=== PATIENT | female | born 1950 | race Caucasian/White ===

== ENCOUNTER 2023-10-06 09:09 | Emergency (ER) | payer MEDICARE, BC ==
[2023-10-06] MEDS ORDERED: Promethazine 25 MG/ML SDV IM ONE (09:44)
[2023-10-06 10:21] LABS: BASOPHILS ABSOLUTE AUTO 0.1 K/mm3 (0.0-0.2); BASOPHILS PERCENT AUTO 0.9 % (0.0-1.0); EOSINOPHILS ABSOLUTE AUTO 0.1 K/mm3 (0.0-0.4); EOSINOPHILS PERCENT AUTO 0.7 % (0.0-6.0); HEMATOCRIT 39.1 % (37.0-47.0); HEMOGLOBIN 12.6 gm/dl (12.0-16.0); IMMATURE GRAN ABSOLUTE AUTO 0.02 K/mm3 (0.00-0.05); IMMATURE GRAN PERCENT AUTO 0.3 % (0.0-0.4); LYMPHOCYTES ABSOLUTE AUTO 1.1 K/mm3 (1.0-4.8); LYMPHOCYTES PERCENT AUTO 15.5 % (24.0-44.0); MEAN CORPUSCULAR HGB CONC 32.2 g/dl (32.0-36.0); MEAN CORPUSCULAR VOLUME 96.3 fl (83.0-99.0); MEAN PLATELET VOLUME 10.5 fl (9.4-12.3); MONOCYTES ABSOLUTE AUTO 0.4 K/mm3 (0.0-0.8); MONOCYTES PERCENT AUTO 5.6 % (0.0-8.0); NEUTROPHILS ABSOLUTE AUTO 5.4 K/mm3 (1.8-7.7); PLATELET COUNT,PLT 264 K/mm3 (150-400); RED BLOOD CELL COUNT 4.06 M/mm3 (4.10-5.30); WHITE BLOOD CELL COUNT,WBC 6.98 K/mm3 (3.9-11.3)
[2023-10-06 13:30] LABS: ALBUMIN 3.7 g/dl (3.4-5.0); ANION GAP 15.9 (5-15); BILIRUBIN TOTAL 0.6 mg/dL (0.2-1.0); BUN/CREATININE RATIO 18.3 (14-18); CALCIUM 9.5 mg/dL (8.5-10.1); CREATININE 1.2 mg/dL (0.55-1.02); EST CRCL DRUG DOSING (CG) 37.01 mL/min; MAGNESIUM 1.6 mg/dL (1.8-2.4); POTASSIUM,K 4.9 mEq/L (3.5-5.1); PROTEIN TOTAL,TP 7.6 g/dl (6.4-8.2)
[2023-10-06 13:53] LABS: APPEARANCE,URINE CLOUDY (Clear); BILIRUBIN,URINE NEGATIVE (Negative); COLOR,URINE YELLOW (Yellow); GLUCOSE,URINE NEGATIVE (Negative); KETONES,URINE NEGATIVE (Negative); LEUKOCYTE ESTERASE,URINE 1+ (Negative); NITRITE,URINE NEGATIVE (Negative); OCCULT BLOOD,URINE TRACE-INTACT (Negative); PROTEIN,URINE 2+ (Negative); UROBILINOGEN,URINE 0.2 (0.2-1.0)
[2023-10-06 14:05] LABS: BACTERIA,URINE MANY /hpf (FEW); MUCUS,URINE FEW /hpf (FEW); WBC,URINE 50-75 /hpf (0-5)
== END 2023-10-06 17:31 | disposition home or self-care (01) ==
LOC: JD.ED 09:09
DX: R42 Dizziness and giddiness (principal); E11.9 Type 2 diabetes mellitus without complications; Z86.73 Personal history of transient ischemic attack (TIA), and cerebral infarction without residual deficits; Z79.899 Other long term (current) drug therapy
CPT/HCPCS: 36415; 72170; 73552; 80053; 81001; 83735; 85025; 96372; 99284; J2550

== ENCOUNTER 2023-11-29 15:04 | Inpatient (IN) | payer MEDICARE, MEDICAID ==
[2023-11-29 16:06] LABS: BASOPHILS ABSOLUTE AUTO 0.1 K/mm3 (0.0-0.2); BASOPHILS PERCENT AUTO 0.4 % (0.0-1.0); EOSINOPHILS ABSOLUTE AUTO 0.1 K/mm3 (0.0-0.4); EOSINOPHILS PERCENT AUTO 0.8 % (0.0-6.0); HEMATOCRIT 40.1 % (37.0-47.0); HEMOGLOBIN 12.9 gm/dl (12.0-16.0); IMMATURE GRAN ABSOLUTE AUTO 0.06 K/mm3 (0.00-0.05); IMMATURE GRAN PERCENT AUTO 0.5 % (0.0-0.4); LYMPHOCYTES ABSOLUTE AUTO 1.4 K/mm3 (1.0-4.8); LYMPHOCYTES PERCENT AUTO 11.9 % (24.0-44.0); MEAN CORPUSCULAR HEMOGLOBIN 31.1 pg (28.0-32.0); MEAN CORPUSCULAR HGB CONC 32.2 g/dl (32.0-36.0); MEAN CORPUSCULAR VOLUME 96.6 fl (83.0-99.0); MEAN PLATELET VOLUME 10.8 fl (9.4-12.3); MONOCYTES PERCENT AUTO 8.5 % (0.0-8.0); NEUTROPHILS ABSOLUTE AUTO 9.3 K/mm3 (1.8-7.7); NEUTROPHILS PERCENT AUTO 77.9 % (41.0-71.0); PLATELET COUNT,PLT 297 K/mm3 (150-400); RED BLOOD CELL COUNT 4.15 M/mm3 (4.10-5.30); WHITE BLOOD CELL COUNT,WBC 11.98 K/mm3 (3.9-11.3)
[2023-11-29] MEDS: Sodium Chloride 0.9% 10 ML Syringe FLUSH PRN (16:10)
[2023-11-29] MEDS: Doxycycline 100 MG in Sodium Chloride 0.9% 100 ML IV ONE (16:10)
[2023-11-29 16:35] LABS: HEMOGLOBIN A1C 5.6 %
[2023-11-29 16:44] LABS: A/G RATIO 0.7 (1-2); ALBUMIN 3.5 g/dl (3.4-5.0); BILIRUBIN TOTAL 0.7 mg/dL (0.2-1.0); C-REACTIVE PROTEIN 6.1 mg/dL (<1.0); CALCIUM 9.7 mg/dL (8.5-10.1); CREATININE 2.6 mg/dL (0.55-1.02); EST CRCL DRUG DOSING (CG) 19.15 mL/min; MAGNESIUM 2.1 mg/dL (1.8-2.4); PROTEIN TOTAL,TP 8.5 g/dl (6.4-8.2)
[2023-11-29] MEDS: Silver Sulfadiazine 1% Crm 400 GM Jar TOP ONE (17:04)
[2023-11-29] MEDS: Furosemide 40 MG/4 ML VIAL IVPUSH ONE (18:25)
[2023-11-29] MEDS: Metoprolol Tartrate 25 MG Tab PO SCH (19:44)
[2023-11-29] MEDS: Sodium Chloride 0.9% 1,000 ML IV SCH (19:55)
[2023-11-29] MEDS ORDERED: Promethazine 25 MG Tab PO PRN (20:00)
[2023-11-29] MEDS ORDERED: Acetaminophen/HYDROcodone 325-5 MG Tab PO PRN (20:04)
[2023-11-29] MEDS ORDERED: Acetaminophen 325 MG Tab PO PRN (20:04)
[2023-11-29] MEDS ORDERED: Morphine 2 MG/ML SYRINGE IVPUSH PRN (20:04)
[2023-11-29] MEDS ORDERED: Nystatin Crm 30 GM Tube TOP SCH (21:00)
[2023-11-29] MEDS ORDERED: Doxycycline 100 MG in Sodium Chloride 0.9% 100 ML IV SCH (21:00)
[2023-11-29] MEDS ORDERED: Doxycycline Monohydrate 100 MG Cap PO SCH (21:00)
[2023-11-29] MEDS ORDERED: Metoprolol Tartrate 25 MG Tab PO SCH (21:00)
[2023-11-29] MEDS: Heparin Sodium 5,000 Units/ML Vial SUBCUT SCH (23:13)
[2023-11-29 23:14] LABS: APPEARANCE,URINE TURBID (Clear); BILIRUBIN,URINE 3+ (Negative); COLOR,URINE RED (Yellow); GLUCOSE,URINE NEGATIVE (Negative); KETONES,URINE 1+ (Negative); LEUKOCYTE ESTERASE,URINE 3+ (Negative); NITRITE,URINE POSITIVE (Negative); OCCULT BLOOD,URINE 3+ (Negative); PH,URINE 5.5 (5.0-8.0); PROTEIN,URINE 3+ (Negative)
[2023-11-29 23:36] LABS: RBC,URINE 50-75 /hpf (0-5); WBC,URINE 0-5 /hpf (0-5)
[2023-11-29 23:37] LABS: AMORPHOUS SEDIMENT,URINE FEW /hpf (NOT SEEN); BACTERIA,URINE MANY /hpf (FEW); EPITHELIAL CELLS,URINE 0-5 /hpf (0-5); MUCUS,URINE NOT SEEN /hpf (FEW)
[2023-11-29] MEDS: Enoxaparin 40 MG/0.4 ML Syringe SUBCUT SCH (23:53)
[2023-11-30] MEDS: Doxycycline 100 MG in Sodium Chloride 0.9% 100 ML IV SCH (04:32)
[2023-11-30] MEDS ORDERED: Furosemide 40 MG Tab PO SCH (06:00)
[2023-11-30] MEDS ORDERED: amLODIPine 5 MG Tab PO SCH ×2 (06:00→09:00)
[2023-11-30] MEDS ORDERED: Losartan 100 MG Tab PO SCH (06:00)
[2023-11-30] MEDS ORDERED: metFORMIN 500 MG Tab PO SCH ×2 (07:00)
[2023-11-30 07:03] LABS: ANION GAP 16.5 (5-15); BUN/CREATININE RATIO 26.5 (14-18); CALCIUM 8.8 mg/dL (8.5-10.1); CREATININE 2.3 mg/dL (0.55-1.02); EST CRCL DRUG DOSING (CG) 21.65 mL/min; POTASSIUM,K 4.5 mEq/L (3.5-5.1)
[2023-11-30 07:26] LABS: BASOPHILS PERCENT AUTO 0.4 % (0.0-1.0); EOSINOPHILS ABSOLUTE AUTO 0.2 K/mm3 (0.0-0.4); EOSINOPHILS PERCENT AUTO 1.9 % (0.0-6.0); HEMATOCRIT 33.5 % (37.0-47.0); IMMATURE GRAN ABSOLUTE AUTO 0.03 K/mm3 (0.00-0.05); IMMATURE GRAN PERCENT AUTO 0.3 % (0.0-0.4); LYMPHOCYTES ABSOLUTE AUTO 1.7 K/mm3 (1.0-4.8); LYMPHOCYTES PERCENT AUTO 19.1 % (24.0-44.0); MEAN CORPUSCULAR HEMOGLOBIN 30.7 pg (28.0-32.0); MEAN CORPUSCULAR HGB CONC 31.9 g/dl (32.0-36.0); MEAN CORPUSCULAR VOLUME 96.3 fl (83.0-99.0); MEAN PLATELET VOLUME 11.3 fl (9.4-12.3); MONOCYTES ABSOLUTE AUTO 0.9 K/mm3 (0.0-0.8); MONOCYTES PERCENT AUTO 9.9 % (0.0-8.0); NEUTROPHILS ABSOLUTE AUTO 6.2 K/mm3 (1.8-7.7); NEUTROPHILS PERCENT AUTO 68.4 % (41.0-71.0); PLATELET COUNT,PLT 244 K/mm3 (150-400); RED BLOOD CELL COUNT 3.48 M/mm3 (4.10-5.30); WHITE BLOOD CELL COUNT,WBC 9.11 K/mm3 (3.9-11.3)
[2023-11-30 07:27] LABS: HEMOGLOBIN 10.7 gm/dl (12.0-16.0)
[2023-11-30] MEDS: Clopidogrel 75 MG Tab PO SCH (08:41)
[2023-11-30] MEDS: Hydrochlorothiazide 25 MG Tab PO SCH (08:41)
[2023-11-30] MEDS: amLODIPine 5 MG Tab PO SCH (08:42)
[2023-11-30] MEDS: Losartan 100 MG Tab PO SCH (08:44)
[2023-11-30] MEDS: Metoprolol Tartrate 25 MG Tab PO SCH (08:44)
[2023-11-30] MEDS: Levothyroxine 50 MCG Tab PO SCH (08:45)
[2023-11-30] MEDS: Nystatin Crm 30 GM Tube TOP SCH (08:45)
[2023-11-30] MEDS ORDERED: Enoxaparin 40 MG/0.4 ML Syringe SUBCUT SCH (09:00)
[2023-11-30] MEDS ORDERED: AMLODIPINE 2.5 MG PO SCH (09:00)
[2023-11-30] MEDS: Doxycycline Monohydrate 100 MG Cap PO SCH (22:01)
[2023-12-01 06:21] LABS: BASOPHILS ABSOLUTE AUTO 0.1 K/mm3 (0.0-0.2); BASOPHILS PERCENT AUTO 0.7 % (0.0-1.0); EOSINOPHILS ABSOLUTE AUTO 0.2 K/mm3 (0.0-0.4); EOSINOPHILS PERCENT AUTO 2.4 % (0.0-6.0); HEMATOCRIT 30.7 % (37.0-47.0); HEMOGLOBIN 9.8 gm/dl (12.0-16.0); IMMATURE GRAN ABSOLUTE AUTO 0.03 K/mm3 (0.00-0.05); IMMATURE GRAN PERCENT AUTO 0.4 % (0.0-0.4); LYMPHOCYTES PERCENT AUTO 23.5 % (24.0-44.0); MEAN CORPUSCULAR HEMOGLOBIN 30.5 pg (28.0-32.0); MEAN CORPUSCULAR HGB CONC 31.9 g/dl (32.0-36.0); MEAN CORPUSCULAR VOLUME 95.6 fl (83.0-99.0); MONOCYTES ABSOLUTE AUTO 0.8 K/mm3 (0.0-0.8); MONOCYTES PERCENT AUTO 8.9 % (0.0-8.0); NEUTROPHILS ABSOLUTE AUTO 5.4 K/mm3 (1.8-7.7); NEUTROPHILS PERCENT AUTO 64.1 % (41.0-71.0); PLATELET COUNT,PLT 226 K/mm3 (150-400); RED BLOOD CELL COUNT 3.21 M/mm3 (4.10-5.30); WHITE BLOOD CELL COUNT,WBC 8.44 K/mm3 (3.9-11.3)
[2023-12-01 06:38] LABS: ANION GAP 16.2 (5-15); BUN/CREATININE RATIO 33.8 (14-18); CALCIUM 8.5 mg/dL (8.5-10.1); CREATININE 1.6 mg/dL (0.55-1.02); EST CRCL DRUG DOSING (CG) 31.12 mL/min; POTASSIUM,K 4.2 mEq/L (3.5-5.1)
[2023-12-02 05:35] LABS: BASOPHILS ABSOLUTE AUTO 0.1 K/mm3 (0.0-0.2); BASOPHILS PERCENT AUTO 0.8 % (0.0-1.0); EOSINOPHILS ABSOLUTE AUTO 0.3 K/mm3 (0.0-0.4); EOSINOPHILS PERCENT AUTO 4.5 % (0.0-6.0); HEMATOCRIT 30.4 % (37.0-47.0); HEMOGLOBIN 9.7 gm/dl (12.0-16.0); IMMATURE GRAN ABSOLUTE AUTO 0.05 K/mm3 (0.00-0.05); IMMATURE GRAN PERCENT AUTO 0.8 % (0.0-0.4); LYMPHOCYTES ABSOLUTE AUTO 1.5 K/mm3 (1.0-4.8); MEAN CORPUSCULAR HEMOGLOBIN 30.4 pg (28.0-32.0); MEAN CORPUSCULAR HGB CONC 31.9 g/dl (32.0-36.0); MEAN CORPUSCULAR VOLUME 95.3 fl (83.0-99.0); MEAN PLATELET VOLUME 10.6 fl (9.4-12.3); MONOCYTES ABSOLUTE AUTO 0.5 K/mm3 (0.0-0.8); NEUTROPHILS ABSOLUTE AUTO 3.6 K/mm3 (1.8-7.7); NEUTROPHILS PERCENT AUTO 59.9 % (41.0-71.0); PLATELET COUNT,PLT 226 K/mm3 (150-400); RED BLOOD CELL COUNT 3.19 M/mm3 (4.10-5.30); WHITE BLOOD CELL COUNT,WBC 5.99 K/mm3 (3.9-11.3)
[2023-12-02 05:59] LABS: ANION GAP 15.4 (5-15); BUN/CREATININE RATIO 32.9 (14-18); CALCIUM 8.9 mg/dL (8.5-10.1); CREATININE 1.4 mg/dL (0.55-1.02); EST CRCL DRUG DOSING (CG) 35.56 mL/min; POTASSIUM,K 4.4 mEq/L (3.5-5.1)
[2023-12-03 05:34] LABS: BASOPHILS ABSOLUTE AUTO 0.1 K/mm3 (0.0-0.2); EOSINOPHILS ABSOLUTE AUTO 0.3 K/mm3 (0.0-0.4); HEMOGLOBIN 10.5 gm/dl (12.0-16.0); IMMATURE GRAN ABSOLUTE AUTO 0.04 K/mm3 (0.00-0.05); IMMATURE GRAN PERCENT AUTO 0.6 % (0.0-0.4); LYMPHOCYTES ABSOLUTE AUTO 1.8 K/mm3 (1.0-4.8); LYMPHOCYTES PERCENT AUTO 28.3 % (24.0-44.0); MEAN CORPUSCULAR HEMOGLOBIN 30.2 pg (28.0-32.0); MEAN CORPUSCULAR HGB CONC 31.8 g/dl (32.0-36.0); MEAN CORPUSCULAR VOLUME 94.8 fl (83.0-99.0); MEAN PLATELET VOLUME 10.7 fl (9.4-12.3); MONOCYTES ABSOLUTE AUTO 0.6 K/mm3 (0.0-0.8); NEUTROPHILS ABSOLUTE AUTO 3.5 K/mm3 (1.8-7.7); NEUTROPHILS PERCENT AUTO 56.1 % (41.0-71.0); PLATELET COUNT,PLT 254 K/mm3 (150-400); RED BLOOD CELL COUNT 3.48 M/mm3 (4.10-5.30); WHITE BLOOD CELL COUNT,WBC 6.23 K/mm3 (3.9-11.3)
[2023-12-03 05:48] LABS: ANION GAP 14.4 (5-15); CALCIUM 9.2 mg/dL (8.5-10.1); CREATININE 1.5 mg/dL (0.55-1.02); EST CRCL DRUG DOSING (CG) 33.19 mL/min; POTASSIUM,K 4.4 mEq/L (3.5-5.1)
[2023-12-04 05:33] LABS: HEMATOCRIT 32.5 % (37.0-47.0); HEMOGLOBIN 10.6 gm/dl (12.0-16.0); MEAN CORPUSCULAR HGB CONC 32.6 g/dl (32.0-36.0); MEAN PLATELET VOLUME 10.6 fl (9.4-12.3); PLATELET COUNT,PLT 250 K/mm3 (150-400); RED BLOOD CELL COUNT 3.42 M/mm3 (4.10-5.30); WHITE BLOOD CELL COUNT,WBC 6.05 K/mm3 (3.9-11.3)
[2023-12-06] MEDS ORDERED: metFORMIN 500 MG Tab PO SCH (21:00)
== END 2023-12-06 13:22 | DRG 638 ==
LOC: JD.ED 15:04 → JD.MS 20:08
PROVIDERS: ADMIT Student in an Organized Health Care Education/Training Program; ATTEND Student in an Organized Health Care Education/Training Program
DX: E11.622 Type 2 diabetes mellitus with other skin ulcer (principal); I69.354 Hemiplegia and hemiparesis following cerebral infarction affecting left non-dominant side; L97.821 Non-pressure chronic ulcer of other part of left lower leg limited to breakdown of skin; L97.811 Non-pressure chronic ulcer of other part of right lower leg limited to breakdown of skin; I87.312 Chronic venous hypertension (idiopathic) with ulcer of left lower extremity; L03.313 Cellulitis of chest wall; L03.311 Cellulitis of abdominal wall; L03.116 Cellulitis of left lower limb; L03.115 Cellulitis of right lower limb; N17.9 Acute kidney failure, unspecified; L30.4 Erythema intertrigo; T21.22XA Burn of second degree of abdominal wall, initial encounter; T21.21XA Burn of second degree of chest wall, initial encounter; B37.2 Candidiasis of skin and nail; L08.9 Local infection of the skin and subcutaneous tissue, unspecified; N81.3 Complete uterovaginal prolapse; E03.9 Hypothyroidism, unspecified; R62.7 Adult failure to thrive; B88.9 Infestation, unspecified; N18.9 Chronic kidney disease, unspecified; E11.22 Type 2 diabetes mellitus with diabetic chronic kidney disease; I12.9 Hypertensive chronic kidney disease with stage 1 through stage 4 chronic kidney disease, or unspecified chronic kidney disease; Z79.02 Long term (current) use of antithrombotics/antiplatelets; Z79.899 Other long term (current) drug therapy; Z79.84 Long term (current) use of oral hypoglycemic drugs; Z68.25 Body mass index [BMI] 25.0-25.9, adult; R60.0 Localized edema; I83.12 Varicose veins of left lower extremity with inflammation; I87.002 Postthrombotic syndrome without complications of left lower extremity; Z79.890 Hormone replacement therapy
CPT/HCPCS: 36415; 80053; 83036; 83605; 83735; 83880; 84443; 84484; 85025; 85652; 86140; 93005; 96365; 96375; 99285; A9270 ×2; J1940; J3490 ×3; J7030; 76770; 76770-26; 80048; 81001; 82947; 85027; 87641; 93010; 97116-GP; 97162-GP; 97530-GP; 99223; 99232; 99233; 99239; 99284; J1644

== ENCOUNTER 2024-11-12 12:29 | Inpatient (IN) | payer MEDICAID, MEDICARE ==
[2024-11-12] MEDS: Sodium Chloride 0.9% 10 ML Syringe FLUSH ONE (12:48)
[2024-11-12] MEDS: Iopamidol 755 Mg/ML 100 ML Bottle IVPUSH ONE (12:48)
[2024-11-12] MEDS: Sodium Chloride 0.9% 100 ML IV SCH (12:48)
[2024-11-12 13:15] LABS: BASOPHILS PERCENT AUTO 0.1 % (0.0-1.0); HEMATOCRIT 38.3 % (37.0-47.0); HEMOGLOBIN 12.9 gm/dl (12.0-16.0); IMMATURE GRAN ABSOLUTE AUTO 0.07 K/mm3 (0.00-0.05); IMMATURE GRAN PERCENT AUTO 0.4 % (0.0-0.4); LYMPHOCYTES ABSOLUTE AUTO 0.7 K/mm3 (1.0-4.8); LYMPHOCYTES PERCENT AUTO 4.6 % (24.0-44.0); MEAN CORPUSCULAR HEMOGLOBIN 31.9 pg (28.0-32.0); MEAN CORPUSCULAR HGB CONC 33.7 g/dl (32.0-36.0); MEAN CORPUSCULAR VOLUME 94.8 fl (83.0-99.0); MONOCYTES ABSOLUTE AUTO 1.4 K/mm3 (0.0-0.8); MONOCYTES PERCENT AUTO 8.4 % (0.0-8.0); NEUTROPHILS ABSOLUTE AUTO 14.1 K/mm3 (1.8-7.7); NEUTROPHILS PERCENT AUTO 86.5 % (41.0-71.0); PLATELET COUNT,PLT 210 K/mm3 (150-400); RED BLOOD CELL COUNT 4.04 M/mm3 (4.10-5.30); WHITE BLOOD CELL COUNT,WBC 16.26 K/mm3 (3.9-11.3)
[2024-11-12 13:44] LABS: INR 1.13; PROTHROMBIN TIME 11.9 SECONDS (9.7-12.0)
[2024-11-12 13:46] LABS: PTT,PARTIAL THROMBOPLSTIN TIME 28.5 SECONDS (21.7-31.4)
[2024-11-12 13:58] LABS: A/G RATIO 0.9 (1-2); ALANINE AMINOTRANSFERASE,ALT 73 U/L (14-59); ALBUMIN 3.3 g/dl (3.4-5.0); ALKALINE PHOSPHATASE 116 U/L (46-116); ANION GAP 27.5 (5-15); ASPARTATE AMNIOTRANSFERASE,AST 204 U/L (15-37); BILIRUBIN TOTAL 2.1 mg/dL (0.2-1.0); BLOOD UREA NITROGEN,BUN 42 mg/dL (7-18); CALCIUM 9.5 mg/dL (8.5-10.1); CARBON DIOXIDE,CO2 16 mEq/L (21-32); CHLORIDE,CL 100 mEq/L (98-107); CREATININE 1.5 mg/dL (0.55-1.02); ESTIMATED GFR 36 mL/min (>60); GLUCOSE RANDOM 130 mg/dL (70-99); POTASSIUM,K 4.5 mEq/L (3.5-5.1); PROTEIN TOTAL,TP 7.2 g/dl (6.4-8.2); SODIUM,NA 139 mEq/L (136-145); TROPONIN I HIGH SENSITIVITY 20 pg/mL (<=51)
[2024-11-12] MEDS: Sodium Chloride 0.9% 1,000 ML IV ONE (14:10)
[2024-11-12] MEDS: Sodium Chloride 0.9% 10 ML Syringe FLUSH PRN (14:11)
[2024-11-12] MEDS ORDERED: Labetalol 100 MG/20 ML MDV IVPUSH PRN (15:39)
[2024-11-12] MEDS ORDERED: hydrALAZINE 20 MG/ML SDV IVPUSH PRN (15:39)
[2024-11-12 15:40] LABS: BASE EXCESS ARTERIAL -11.2 (-2-2.0); BICARBONATE,ARTERIAL 13.6 meq/L (22.0-26.0); O2 SATURATION ARTERIAL 93.4 % (96.0-97.0); PCO2 ARTERIAL 28.4 mmHg (35.0-45.0)
[2024-11-12] MEDS ORDERED: Sodium Chloride 0.9% 1,000 ML IV SCH (15:45)
[2024-11-12] MEDS ORDERED: 50% Dextrose in Water 50 ML Syringe IVPUSH PRN (16:10)
[2024-11-12] MEDS: Sodium Chloride 0.9% 10 ML Syringe FLUSH SCH (16:17)
[2024-11-12] MEDS: Gadobenate Dimeglumine 529 MG/ML 20 ML SDV IVPUSH ONE (16:17)
[2024-11-12] MEDS: Albuterol/Ipratropium 3.0-0.5 MG/3 ML Neb Soln NEB PRN (16:37)
[2024-11-12] MEDS: Clopidogrel 75 MG Tab PO ONE (16:41)
[2024-11-12] MEDS: Aspirin 81 MG Tab.Chew PO SCH (16:42)
[2024-11-12] MEDS: Insulin Lispro 100 Unit/ML 3 ML KwikPen SUBCUT SCH (16:42)
[2024-11-12] MEDS ORDERED: Morphine 2 MG/ML SYRINGE IVPUSH PRN (17:24)
[2024-11-12] MEDS ORDERED: Ondansetron 4 MG/2 ML SDV IV PRN (17:24)
[2024-11-12] MEDS ORDERED: Acetaminophen 325 MG Tab PO PRN (17:24)
[2024-11-12] MEDS ORDERED: oxyCODONE 5 MG Tab PO PRN (17:24)
[2024-11-12] MEDS ORDERED: Melatonin 3 MG Tab PO PRN (17:24)
[2024-11-12 18:32] LABS: SALICYLATE 2.9 mg/dL (2.8-20.0)
[2024-11-12] MEDS: Heparin Sodium 5,000 Units/ML Vial SUBCUT SCH (18:55)
[2024-11-12] MEDS: methylPREDNISolone Sodium Succinate 125 MG/2 ML SDV IVPUSH ONE (18:55)
[2024-11-12] MEDS: Piperacillin/Tazobactam 4.5 GM in Water For Injection, Sterile 20 ML IV SCH (18:56)
[2024-11-12] MEDS: Famotidine 20 MG/2 ML SDV IVPUSH SCH (20:10)
[2024-11-12] MEDS: Midodrine 5 MG Tab PO PRN (20:10)
[2024-11-12 20:19] LABS: APPEARANCE,URINE CLEAR (Clear); BILIRUBIN,URINE 2+ (Negative); COLOR,URINE YELLOW (Yellow); GLUCOSE,URINE NEGATIVE (Negative); KETONES,URINE 3+ (Negative); LEUKOCYTE ESTERASE,URINE NEGATIVE (Negative); NITRITE,URINE NEGATIVE (Negative); OCCULT BLOOD,URINE 1+ (Negative); PH,URINE 5.5 (5.0-8.0); PROTEIN,URINE 2+ (Negative); UROBILINOGEN,URINE 0.2 (0.2-1.0)
[2024-11-12 20:32] LABS: BARBITURATE SCREEN,URINE NEGATIVE (CUTOFF=200); BENZODIAZEPINES SCREEN,URINE NEGATIVE (CUTOFF=150); BUPRENORPHINE SCREEN,URINE NEGATIVE (CUTOFF=10); METHADONE SCREEN, URINE NEGATIVE (CUTOFF=200); METHAMPHETAMINES SCREEN, URINE NEGATIVE (CUTOFF=500); OXYCODONE SCREEN,URINE NEGATIVE (CUT0FF=100); THC SCREEN,URINE 20 NG/ML NEGATIVE (CUTOFF=50)
[2024-11-12] MEDS: Miconazole 2% Crm 30 GM Tube TOP SCH (20:47)
[2024-11-12 20:48] LABS: AMPHETAMINES SCREEN, URINE NEGATIVE (CUTOFF=500)
[2024-11-12] MEDS ORDERED: atorvaSTATin 40 MG Tab PO SCH (21:00)
[2024-11-12] MEDS ORDERED: Miconazole 2% Crm 30 GM Tube TOP SCH (21:00)
[2024-11-12] MEDS: Albuterol/Ipratropium 3.0-0.5 MG/3 ML Neb Soln NEB SCH (21:03)
[2024-11-12] MEDS: Nystatin Topical Powder 15 GM Bottle TOP SCH (21:18)
[2024-11-12 22:39] LABS: BACTERIA,URINE MODERATE /hpf (FEW); MUCUS,URINE FEW /hpf (FEW); RBC,URINE 20-30 /hpf (0-5)
[2024-11-13] MEDS: diphenhydrAMINE 50 MG/ML SDV IVPUSH ONE (04:13)
[2024-11-13] MEDS: methylPREDNISolone Sodium Succinate 125 MG/2 ML SDV IVPUSH ONE (04:13)
[2024-11-13 07:08] LABS: BASOPHILS PERCENT AUTO 0.1 % (0.0-1.0); HEMATOCRIT 33.1 % (37.0-47.0); HEMOGLOBIN 11.1 gm/dl (12.0-16.0); IMMATURE GRAN ABSOLUTE AUTO 0.09 K/mm3 (0.00-0.05); IMMATURE GRAN PERCENT AUTO 0.7 % (0.0-0.4); LYMPHOCYTES ABSOLUTE AUTO 0.7 K/mm3 (1.0-4.8); LYMPHOCYTES PERCENT AUTO 4.9 % (24.0-44.0); MEAN CORPUSCULAR HEMOGLOBIN 32.5 pg (28.0-32.0); MEAN CORPUSCULAR HGB CONC 33.5 g/dl (32.0-36.0); MEAN CORPUSCULAR VOLUME 96.8 fl (83.0-99.0); MEAN PLATELET VOLUME 11.5 fl (9.4-12.3); MONOCYTES ABSOLUTE AUTO 0.5 K/mm3 (0.0-0.8); MONOCYTES PERCENT AUTO 3.9 % (0.0-8.0); NEUTROPHILS ABSOLUTE AUTO 12.3 K/mm3 (1.8-7.7); NEUTROPHILS PERCENT AUTO 90.4 % (41.0-71.0); PLATELET COUNT,PLT 183 K/mm3 (150-400); RED BLOOD CELL COUNT 3.42 M/mm3 (4.10-5.30); WHITE BLOOD CELL COUNT,WBC 13.64 K/mm3 (3.9-11.3)
[2024-11-13 07:20] LABS: SLIDE REVIEW ABNORMAL SMEAR
[2024-11-13 07:30] LABS: A/G RATIO 0.8 (1-2); ALBUMIN 2.7 g/dl (3.4-5.0); ANION GAP 28.4 (5-15); BILIRUBIN TOTAL 1.3 mg/dL (0.2-1.0); BUN/CREATININE RATIO 25.7 (14-18); C-REACTIVE PROTEIN 16.46 mg/dL (<0.30); CALCIUM 8.9 mg/dL (8.5-10.1); CREATININE 2.1 mg/dL (0.55-1.02); EST CRCL DRUG DOSING (CG) 20.83 mL/min; MAGNESIUM 1.9 mg/dL (1.8-2.4); PHOSPHORUS 6.2 mg/dL (2.6-4.7); POTASSIUM,K 4.4 mEq/L (3.5-5.1); PROTEIN TOTAL,TP 6.3 g/dl (6.4-8.2); TSH 1.473 uIU/mL (0.358-3.74)
[2024-11-13] MEDS ORDERED: Sodium Chloride 0.45% 1,000 ML IV SCH (08:00)
[2024-11-13] MEDS: Dextrose 5%-0.45% NaCl 1,000 ML IV SCH (08:30)
[2024-11-13] MEDS: Thiamine 200 MG/2 ML MDV IVPUSH ONE (08:32)
[2024-11-13] MEDS: Clopidogrel 75 MG Tab PO SCH (08:33)
[2024-11-13] MEDS: Piperacillin/Tazobactam 4.5 GM Vial IV SCH (13:01)
[2024-11-13] MEDS: Sennosides/Docusate Sodium 50-8.6 MG Tab PO PRN (16:43)
[2024-11-13] MEDS: Metoprolol Tartrate 25 MG Tab PO SCH (21:35)
[2024-11-14 04:40] LABS: BASOPHILS PERCENT AUTO 0.1 % (0.0-1.0); HEMATOCRIT 27.8 % (37.0-47.0); HEMOGLOBIN 9.5 gm/dl (12.0-16.0); IMMATURE GRAN ABSOLUTE AUTO 0.11 K/mm3 (0.00-0.05); IMMATURE GRAN PERCENT AUTO 0.9 % (0.0-0.4); LYMPHOCYTES PERCENT AUTO 7.5 % (24.0-44.0); MEAN CORPUSCULAR HEMOGLOBIN 32.4 pg (28.0-32.0); MEAN CORPUSCULAR HGB CONC 34.2 g/dl (32.0-36.0); MEAN CORPUSCULAR VOLUME 94.9 fl (83.0-99.0); MEAN PLATELET VOLUME 11.4 fl (9.4-12.3); NEUTROPHILS ABSOLUTE AUTO 10.8 K/mm3 (1.8-7.7); NEUTROPHILS PERCENT AUTO 83.5 % (41.0-71.0); PLATELET COUNT,PLT 161 K/mm3 (150-400); RED BLOOD CELL COUNT 2.93 M/mm3 (4.10-5.30); WHITE BLOOD CELL COUNT,WBC 12.93 K/mm3 (3.9-11.3)
[2024-11-14 05:11] LABS: A/G RATIO 0.7 (1-2); ALBUMIN 2.4 g/dl (3.4-5.0); ANION GAP 17.8 (5-15); BILIRUBIN TOTAL 0.7 mg/dL (0.2-1.0); BUN/CREATININE RATIO 18.4 (14-18); C-REACTIVE PROTEIN 9.09 mg/dL (<0.30); CALCIUM 8.3 mg/dL (8.5-10.1); CREATININE 3.2 mg/dL (0.55-1.02); EST CRCL DRUG DOSING (CG) 13.67 mL/min; MAGNESIUM 2.1 mg/dL (1.8-2.4); PHOSPHORUS 5.4 mg/dL (2.6-4.7); POTASSIUM,K 3.8 mEq/L (3.5-5.1); PROTEIN TOTAL,TP 5.7 g/dl (6.4-8.2)
[2024-11-14] MEDS: Furosemide 20 MG/2 ML VIAL IVPUSH ONE (08:10)
[2024-11-14] MEDS: Levothyroxine 50 MCG Tab PO SCH (08:11)
[2024-11-14] MEDS: Lactated Ringers 1,000 ML IV SCH (08:11)
[2024-11-14] MEDS: Loperamide 2 MG Cap PO ONE (16:53)
[2024-11-14] MEDS ORDERED: Piperacillin/Tazobactam 4.5 GM Vial IV SCH (18:00)
== END 2024-11-14 17:33 | DRG 558 ==
LOC: JD.ED 12:29 → JD.ICU 14:28
PROVIDERS: ADMIT Student in an Organized Health Care Education/Training Program; ATTEND Student in an Organized Health Care Education/Training Program
PROC: 4A033R1 Measurement of Arterial Saturation, Peripheral, Percutaneous Approach (ICD-10-PCS; principal; 2024-11-12)
PROC: 5A09357 Assistance with Respiratory Ventilation, Less than 24 Consecutive Hours, Continuous Positive Airway Pressure (ICD-10-PCS; principal; 2024-11-12)
DX: M62.82 Rhabdomyolysis (principal); N28.9 Disorder of kidney and ureter, unspecified; E86.0 Dehydration; I10 Essential (primary) hypertension; E11.9 Type 2 diabetes mellitus without complications; Z86.73 Personal history of transient ischemic attack (TIA), and cerebral infarction without residual deficits; G81.94 Hemiplegia, unspecified affecting left nondominant side; Z79.890 Hormone replacement therapy; R65.10 Systemic inflammatory response syndrome (SIRS) of non-infectious origin without acute organ dysfunction; E87.29 Other acidosis; G45.9 Transient cerebral ischemic attack, unspecified; N17.9 Acute kidney failure, unspecified; I12.9 Hypertensive chronic kidney disease with stage 1 through stage 4 chronic kidney disease, or unspecified chronic kidney disease; N18.9 Chronic kidney disease, unspecified; E11.22 Type 2 diabetes mellitus with diabetic chronic kidney disease; E03.9 Hypothyroidism, unspecified; H54.7 Unspecified visual loss; G93.89 Other specified disorders of brain; R09.89 Other specified symptoms and signs involving the circulatory and respiratory systems; R74.01 Elevation of levels of liver transaminase levels; E88.09 Other disorders of plasma-protein metabolism, not elsewhere classified; T73.0XXA Starvation, initial encounter; N14.11 Contrast-induced nephropathy; T50.8X5A Adverse effect of diagnostic agents, initial encounter; Z79.1 Long term (current) use of non-steroidal anti-inflammatories (NSAID); Z86.16 Personal history of COVID-19; Z79.84 Long term (current) use of oral hypoglycemic drugs; Z79.2 Long term (current) use of antibiotics; Z79.899 Other long term (current) drug therapy; Z79.02 Long term (current) use of antithrombotics/antiplatelets
CPT/HCPCS: 36415; 70450; 70496; 70498; 80053; 82550; 82947; 84484; 85025; 85610; 85730; 87428; 93005; 99285; J7030; Q9967; 36600; 51702; 51798; 70553; 70553-26; 71045; 71045-26; 76770; 76770-26; 80061; 80143; 80179; 80306; 80307; 81001; 82010; 82140; 82728; 82803; 83540; 83605; 83735; 83880; 84100; 84443; 84466; 84540; 86140; 87040; 93010; 93306; 94640; 94660; 94667; 94668; 97110-GP; 97161-GP; 97530-GP; 99223; 99233; 99239; A9270-GY; A9577; J1200; J1644; J1815; J1940; J2543; J2919; J3411; J3475; J7120; J7620-GY; J7799

== ENCOUNTER 2025-04-30 15:26 | Emergency (ER) | payer MEDICARE | END 2025-04-30 16:53 | disposition home or self-care (01) | LOC: JD.ED 15:26 | DX: R60.0 Localized edema (principal); I10 Essential (primary) hypertension; E11.9 Type 2 diabetes mellitus without complications; E03.9 Hypothyroidism, unspecified; Z79.899 Other long term (current) drug therapy; Z86.73 Personal history of transient ischemic attack (TIA), and cerebral infarction without residual deficits | CPT/HCPCS: 93971-26-LT; 93971-LT; 99283; 99284 ==